=== PATIENT | male | born 1950 | race Two or more races ===

== ENCOUNTER 2018-07-12 12:20 | Outpatient (CLI) | payer OTHER | END 2018-07-12 12:36 | disposition home or self-care (01) | LOC: RAD 12:20 | DX: M54.5 Low back pain (principal); Z68.28 Body mass index [BMI] 28.0-28.9, adult; E11.9 Type 2 diabetes mellitus without complications; E55.9 Vitamin D deficiency, unspecified; E78.89 Other lipoprotein metabolism disorders; I10 Essential (primary) hypertension ==

== ENCOUNTER 2018-08-12 09:48 | Outpatient (CLI) | payer OTHER | END 2018-08-12 09:49 | disposition home or self-care (01) | LOC: SONOGRAMA 09:48 | DX: R33.8 Other retention of urine (principal) ==

== ENCOUNTER 2019-03-16 10:43 | Outpatient (CLI) | payer OTHER | END 2019-03-16 10:48 | disposition home or self-care (01) | LOC: RAD 10:43 | DX: M06.4 Inflammatory polyarthropathy (principal); Z68.28 Body mass index [BMI] 28.0-28.9, adult; E03.8 Other specified hypothyroidism; M54.5 Low back pain; E55.9 Vitamin D deficiency, unspecified; E78.89 Other lipoprotein metabolism disorders; N40.0 Benign prostatic hyperplasia without lower urinary tract symptoms ==

== ENCOUNTER 2022-08-19 13:52 | Outpatient (CLI) | payer OTHER | END 2022-08-19 14:10 | disposition home or self-care (01) | LOC: PPH VACUNA 13:52 | PROVIDERS: ATTEND Emergency Medicine Pediatric Emergency Medicine | DX: Z23 Encounter for immunization (principal) ==

== ENCOUNTER 2025-03-12 14:59 | Outpatient (CLI) | payer OTHER | END 2025-03-12 15:01 | disposition home or self-care (01) | LOC: SONOGRAMA 14:59 | PROVIDERS: ATTEND Urology | DX: N40.1 Benign prostatic hyperplasia with lower urinary tract symptoms (principal); R33.9 Retention of urine, unspecified ==